=== PATIENT | male | born 1975 | race Caucasian/White ===

== ENCOUNTER 2023-03-30 16:55 | Emergency (ER) | payer MEDICARE, MEDICAID ==
[2023-03-30 17:15] LABS: BASOPHILS ABSOLUTE AUTO 0.05 K/uL (0.00-0.20); BASOPHILS PERCENT AUTO 0.5 % (0.0-2.0); EOSINOPHILS ABSOLUTE AUTO 0.62 K/uL (0.00-0.50); EOSINOPHILS PERCENT AUTO 6.1 % (0.0-5.0); HEMATOCRIT 48.3 % (39.0-49.0); HEMOGLOBIN 16.6 g/dL (13.1-16.8); LYMPHOCYTES ABSOLUTE AUTO 4.96 K/uL (0.50-3.50); LYMPHOCYTES PERCENT AUTO 48.5 % (10.0-50.0); MEAN CORPUSCULAR HEMOGLOBIN 31.1 pg (28.2-33.3); MEAN CORPUSCULAR HGB CONC 34.4 g/dL (31.7-36.0); MEAN CORPUSCULAR VOLUME 90.6 fL (84.0-98.0); MONOCYTES PERCENT AUTO 5.9 % (2.0-14.0); PLATELET COUNT,PLT 119 K/uL (150-350); RED BLOOD CELL COUNT 5.33 M/uL (4.33-5.41); RED CELL DISTRIBUTION WIDTH 13.4 % (11.2-14.1); WHITE BLOOD CELL COUNT,WBC 10.2 K/uL (4.0-10.2)
[2023-03-30 17:34] LABS: ALBUMIN 3.7 g/dL (3.4-5.0); ANION GAP 9.4 meq/L (7-15); BILIRUBIN TOTAL 0.3 mg/dL (0.2-1.0); CALCIUM 8.7 mg/dL (8.5-10.1); CARBON DIOXIDE,CO2 25.6 mmol/L (21.0-32.0); CREATININE 0.7 mg/dL (0.51-1.17); EST CRCL DRUG DOSING (CG) 124.86 mL/min; ETHANOL BLOOD MEDICAL 0.24 g/dL (0.000-0.080); PROTEIN TOTAL,TP 8.4 g/dL (6.4-8.2)
[2023-03-30] MEDS: Diphtheria,Pertussis(Acell),Tetanus Vaccine 0.5 ML Syringe IM ONE (18:14)
[2023-03-30] MEDS: Bacitracin Oint 1 GM U/D Packet TOP ONE (18:19)
[2023-03-30] MEDS: Cephalexin 500 MG Cap PO ONE (18:23)
== END 2023-03-30 18:30 | disposition home or self-care (01) ==
LOC: LL.ED 16:55
DX: L02.512 Cutaneous abscess of left hand (principal); I10 Essential (primary) hypertension; F10.220 Alcohol dependence with intoxication, uncomplicated; F17.210 Nicotine dependence, cigarettes, uncomplicated; J44.9 Chronic obstructive pulmonary disease, unspecified; Z23 Encounter for immunization; Z91.030 Bee allergy status
CPT/HCPCS: 36415; 73140-F2; 80053; 80307; 85025; 87070; 87205; 90471; 90715; 99283-25; A9270-GY

== ENCOUNTER 2024-12-25 17:38 | Emergency (ER) | payer MEDICARE, MEDICAID | END 2024-12-25 19:53 | disposition home or self-care (01) | LOC: LL.ED 17:38 | DX: T18.5XXA Foreign body in anus and rectum, initial encounter (principal); J44.9 Chronic obstructive pulmonary disease, unspecified; Z91.030 Bee allergy status; Z79.899 Other long term (current) drug therapy; W44.8XXA Other foreign body entering into or through a natural orifice, initial encounter; Y93.89 Activity, other specified | CPT/HCPCS: 72170; 99283; 99284 ==

== ENCOUNTER 2025-01-30 16:51 | Emergency (ER) | payer MEDICARE, MEDICAID ==
[2025-01-30] MEDS ORDERED: Sodium Chloride 0.9% 10 ML Syringe FLUSH PRN (16:59)
[2025-01-30 17:33] LABS: BASOPHILS ABSOLUTE AUTO 0.06 K/uL (0.00-0.20); BASOPHILS PERCENT AUTO 0.3 % (0.0-2.0); EOSINOPHILS ABSOLUTE AUTO 1.39 K/uL (0.00-0.50); EOSINOPHILS PERCENT AUTO 7.1 % (0.0-5.0); IMMATURE GRAN ABSOLUTE AUTO 0.07 10^3/uL (0.00-0.04); IMMATURE GRAN PERCENT AUTO 0.4 % (0.0-0.4); LYMPHOCYTES ABSOLUTE AUTO 1.92 K/uL (0.50-3.50); LYMPHOCYTES PERCENT AUTO 9.8 % (10.0-50.0); MONOCYTES ABSOLUTE AUTO 1.10 K/uL (0.00-1.00); MONOCYTES PERCENT AUTO 5.6 % (2.0-14.0); NEUTROPHILS ABSOLUTE AUTO 15.08 K/uL (1.40-7.00); NEUTROPHILS PERCENT AUTO 76.8 % (45.0-80.0); PLATELET COUNT,PLT 356 K/uL (150-350); RED BLOOD CELL COUNT 4.14 M/uL (4.33-5.41); RED CELL DISTRIBUTION WIDTH 12.7 % (11.2-14.1); WHITE BLOOD CELL COUNT,WBC 19.6 K/uL (4.0-10.2)
[2025-01-30 18:01] LABS: LACTIC ACID 0.9 mmol/L (0.4-2.0)
[2025-01-30 18:01] LABS: APPEARANCE,URINE CLEAR; GLUCOSE,URINE NEGATIVE (NEGATIVE); OCCULT BLOOD,URINE NEGATIVE (NEGATIVE)
[2025-01-30 18:06] LABS: SQUAMOUS EPITHELIAL CELLS,UR RARE /HPF (NOT SEEN)
[2025-01-30 18:09] LABS: ALANINE AMINOTRANSFERASE,ALT 12 U/L (12-78); ASPARTATE AMNIOTRANSFERASE,AST 20 U/L (15-37); BILIRUBIN TOTAL 0.6 mg/dL (0.2-1.0); BLOOD UREA NITROGEN,BUN 11 mg/dL (7-18); CARBON DIOXIDE,CO2 28.7 mmol/L (21.0-32.0); CHLORIDE,CL 103 mmol/L (98-107); CREATININE 0.86 mg/dL (0.51-1.17); GLUCOSE RANDOM 97 mg/dL (70-99); POTASSIUM,K 4.5 mmol/L (3.5-5.1); PROTEIN TOTAL,TP 6.9 g/dL (6.4-8.2); SODIUM,NA 141 mmol/L (136-145)
[2025-01-30 18:10] LABS: ESTIMATED GFR 105 mL/min (>=60)
== END 2025-01-30 18:20 | disposition home or self-care (01) ==
LOC: LL.ED 16:51
DX: R50.9 Fever, unspecified (principal); Z91.030 Bee allergy status; Z79.899 Other long term (current) drug therapy
CPT/HCPCS: 36415; 71046; 80053; 81001; 83605; 85025; 87040; 99283; A9270-GY